=== PATIENT | male | born 1965 | race Caucasian/White ===

== ENCOUNTER 2021-08-30 15:23 | Emergency (ER) | payer SELFPAY ==
[~2021-08-30] VITALS: Ht 175.3 cm; Wt 82.0 kg
[~2021-08-30 15:23] MED LIST: AMIODARONE HCL 50MG/ML 3ML VIAL IV ONE; EPINEPHRINE 0.1MG/ML (1:10,000) 10ML SYR ONE; SODIUM BICARBONATE 8.4% 1 MEQ/ML 50ML SYR IV ONE
[2021-08-30 15:26] VITALS: BP 0/0
[2021-08-30] MEDS ORDERED: amoxil (15:26)
== END 2021-08-30 23:07 ==
LOC: ER 15:23
DX: I46.9 Cardiac arrest, cause unspecified (principal)
CPT/HCPCS: 31500; 82962; 92950; 99291; J0282; J3490